=== PATIENT | male | born 1955 ===

== ENCOUNTER 2020-12-07 09:02 | Outpatient (REF) | payer OTHER, SELFPAY | END 2020-12-07 09:03 | disposition home or self-care (01) | LOC: HO.SCI 09:02 | DX: Z13.89 Encounter for screening for other disorder (principal) ==

== ENCOUNTER 2020-12-17 08:43 | Outpatient (REF) | payer OTHER, SELFPAY ==
--- NOTE | ~2020-12-17 | CT_ITS ---
EXAMINATION: CT SOFT TISSUE NECK WITH CONTRAST CLINICAL INFORMATION: Nasopharyngeal lesion. Left otalgia. COMPARISON: None TECHNIQUE: Following the administration of 60 mL of Omnipaque 300 intravenous contrast, helical imaging was performed in the axial plane with generation of coronal and sagittal reformatted images. This CT examination was performed using dose optimization techniques as appropriate, variously including the following: *Automated exposure control *Adjustment of mA and/or kV according to patient size (this includes techniques or standardized protocols for targeted exams where dose is matched to indication/reason for exam; i.e. extremities or head) *Use of iterative reconstruction technique DLP: 327 mGy-cm FINDINGS: No well-defined nasopharyngeal lesion is seen. No retropharyngeal lymph nodes are seen. No erosive changes are seen about the central skull base. The oropharyngeal contours including the palatine tonsils and base of tongue appears symmetric. There is no laryngeal lesion. The parotid and submandibular glands appear normal. No enlarged or suspicious appearing cervical lymph nodes are seen. The thyroid gland appears normal. No enlarged upper mediastinal lymph nodes are seen. No consolidation is seen within the upper lungs. The major neck arteries are patent. Atheromatous changes are seen at the proximal left internal carotid artery without high-grade stenosis. Mild degenerative changes are seen in the spine. The imaged intracranial contents are unremarkable. There is mild paranasal sinus mucosal thickening with scattered mucosal retention cysts. The mastoid air cells and middle ear cavities are clear. CT/CT soft tissue neck w con IMPRESSION: No definite nasopharyngeal lesion is seen. There is no retropharyngeal adenopathy or erosive change at the skull base. The mastoids are clear.
[2020-12-17] MEDS: iohexoL 350 MG/ML 100 ML INFUS..BTL IV (09:24)
== END 2020-12-17 08:44 | disposition home or self-care (01) ==
LOC: HO.CT 08:43
PROVIDERS: Visit Provider Otolaryngology
DX: J39.2 Other diseases of pharynx (principal); H92.02 Otalgia, left ear
CPT/HCPCS: 70491; Q9967